=== PATIENT | male | born 1980 | race Caucasian/White ===

== ENCOUNTER 2025-03-06 20:09 | Emergency (ER) | payer OTHER, SELFPAY ==
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
[2025-03-06 20:26] VITALS: BP 141/73; PULSE 94; RESP 16; TEMP 36.7; O2SAT 99
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
--- OUTSIDE RECORDS SUMMARY | 2025-03-06 21:45 | XMS_ITS | Clinical Summary ---
Author Organization [facility] Address [address] [place] [phone] Phone Care Team Providers Care Bale Sewer Name Role Phone Unavailable Primary Care Provider Unavailabl e Social History Tobacco Use Types Packs/Day Years Used Date Smoking Tobacco: Never Assessed Sex and Gender Information Value Date Recorded Sex Assigned at Not on file Legal Sex Male 11:40 PM CDT Gender Identity Not on file Sexual Orientation Not on file Plan of Treatment Health Maintenance Due Date Last Done Comments HPV VACCINES (1 - Male 3-dose series) 1997 DTAP/TDAP/TD VACCINES (1 - Tdap) 2001 HEPATITIS B VACCINES (1 of 3 - 19+ 3-dose series) 04/26 INFLUENZA VACCINE (#1) 2025
--- OUTSIDE RECORDS SUMMARY | 2025-03-06 21:45 | XMS_ITS | Encounter Summary ---
Author Organization [facility] Address [address] [place] [address] Care Team Providers Care Synthetic Plasterer Name Role Phone Unavailable Primary Care Provider Unavailabl e Encounter Details Date Type Department Care Team (Late st Contact Info) Description 11/17/2018 Lab Requisition [facility] [address] [place] [phone] [place] [address] [facility] [address] [place] [address] Social History Tobacco Use Types Packs/Day Years Used Date Smoking Tobacco: Never Assessed Sex and Gender Information Value Date Recorded Sex Assigned at Not on file Legal Sex Male 11:40 PM CDT Gender Identity Not on file Sexual Orientation Not on file documented as of this encounter Plan of Treatment Not on file documented as of this encounter Procedures Procedure Name Priority Date/Time Associated Diagnosis Comments RPR Routine 11/16/2018 1:28 PM CDT documented in this encounter Results * RPR (11/16/2018 1:28 PM CDT) RPR NON-REACTI VE Non-Reacti ve 11/17/2018 8:02 AM CDT [facility] Blood Collection / Unknown 11/16/2018 1:28 PM CDT 11/17/2018 12:13 AM CDT us Luis Parnell MD CHEMISTRY ORDERABLES Final R esult [facility] [employer] [facility] CLIA# [id number] [address] [place] [address] documented in this encounter Visit Diagnoses Not on filedocumented in this encounter
--- OUTSIDE RECORDS SUMMARY | 2025-03-06 21:45 | XMS_ITS | Clinical Summary ---
Author Organization [facility] Address [address] [place] [address] Care Team Providers Care Map Mounter Name Role Phone Hima Diamond MD Unavailable Ingrid Mcknight CALL CENTER TRAINER Primary Care Provider Allergies No known active allergies Medications amitriptyline (ELAVIL) 25 mg tablet Take 1 tablet (25 mg total) by mouth daily 1 Active TURMERIC ORAL Take by mouth Ac tive ibuprofen (ADVIL,MOTRIN) 400 mg tablet Take by mouth every 6 (six) hours as needed for pain Active gabapentin (NEURONTIN) 300 mg capsuleIndicati ons:Neuropathic Pain Take 1 capsule (300 mg total) by mouth every 8 (eight) hours 90 capsule 2 2 Active Additional Information Patient not taking.Reported on 07/18/2024 acetaminophen ER (Tylenol Arthritis Pain) 650 mg 8 hr tablet Take 2 tablets every 8 hours by oral route. 4 Active Active Problems Problem Noted Date Diagnosed Date Neuralgia of right sciatic nerve 07/03/2024 Occult blood in stools 06/26/2024 Hypercholesterolemia 06/06/2024 Prediabetes 06/06/2024 Constipation 06/02/2024 Gastroesophageal reflux disease without esophagi tis 06/02/2024 Hypertriglyceridemia 01/28/2023 Persistent insomnia 01/12/2023 Right facial numbness 02/11/2021 Assessment & Plan (05/08/2021 9:11 AM CDT): Patient has undergone an MRI of the brain demonstrating hyperintensity in the region of the pituitary likely benign. At this time he has no symptoms referable to a pituitary issue. Observation for the neurological standpoint is appropriate. If he would develop new neurological symptoms and a follow-up MRI for surveillance would be recommended. He will follow-up in neurology clinic on as-needed basis. Assessment & Plan (02/11/2021 10:06 AM CDT): Patient describes intermittent right oriana facial numbness without other bulbar deficits either subjectively or objectively on exam. I will obtain an MRI of the brain to exclude structural abnormalities to account for his numbness. I will see him back thereafter. Neck pain 02/11/2021 Assessment & Plan (05/08/2021 9:12 AM CDT): MRI cervical spine demonstrates multilevel spondylosis. Given his failure to respond to chiropractic treatment with regard to back pain I will obtain a physical therapy evaluation as well as refer him for pain management evaluation as well. He will follow-up in neurology clinic on an as-needed basis. Assessment & Plan (02/11/2021 10:07 AM CDT): Patient has a several year history of neck pain with radiating paresthesia into the right arm diffusely. He has been previously seen by a neurologist in both area who told him he had bulging discs. More recently he has undergone a multiyear treatment program by chiropractor without improvement. I will obtain a contemporary MRI cervical spine and see him back thereafter. Chronic bilateral low back pain 02/11/2021 Assessment & Plan (05/08/2021 9:12 AM CDT): MRI lumbar spine demonstrates multilevel noncompressive spondylosis. Given his failure to respond from a lumbar pain standpoint with chiropractic, I will place him through a course of physical therapy and obtain a pain management referral as well. He will follow-up in neurology clinic on an as-needed basis. Assessment & Plan (02/11/2021 10:08 AM CDT): Patient has a several year history of low back pain with radiating paresthesias down both legs diffusely. He has no weakness in the legs no loss of bladder or bowel control. He was previously evaluated [facility] years ago and told to have bulging disc. More recent to treatment by chiropractors been ineffective. I will obtain an MRI lumbar spine to further events to gait is anatomy and see him back thereafter. Surgical History Surgery Date Site/Laterality Comments ORAL SURGERY FL FLUORO GUIDED LUMBAR PUNCTURE 07/28/2024 Right Medical History Medical History Date Comments No pertinent past medical history Neck pain Low back pain Mid back pain Scoliosis Family History Medical History Relation Name Comments No Known Problems Brother Cancer Father No Known Problems Mother Relation Name Status Comments Brother Alive Father Alive Mother Alive Social History Tobacco Use Types Packs/Day Years Used Date Smoking Tobacco: Never Smokeless Tobacco: Never Tobacco Cessation:Counseling Given: Not Answered PHQ-2 Answer Date Recorded PHQ-2 Total Score (If total score is 3 or more points, staff should administer the PHQ-9) 0 01/17/2022 Personal Safety Answer Date Recorded Have you ever been in or are you currently in a harmful physical or emotional relationship or is someone making you feel afraid or unsafe? Denies 07/28/2024 Sex and Gender Information Value Date Recorded Sex Assigned at Not on file Legal Sex Male 1:22 PM DRYWALL HANGER Gender Identity Not on file Sexual Orientation Not on file Obstetrics History Last Filed Vital Signs Vital Sign Reading Time Taken Comments Blood Pressure 121/74 07/28/2024 11:51 AM DRYWALL HANGER Pulse 63 07/28/2024 11:51 AM DRYWALL HANGER Temperature 36.3 C (97.4 F) 01/17/2022 9:22 AM CDT Respiratory Rate 16 07/28/2024 11:51 AM DRYWALL HANGER Oxygen Saturation 98% 07/28/2024 11:51 AM DRYWALL HANGER Inhaled Oxygen Concentration - - Weight 79.4 kg (175 lb) 07/18/2024 9:35 AM DRYWALL HANGER Height 170.2 cm (5' 7) 07/18/2024 9:35 AM DRYWALL HANGER Body Mass Index 27.41 07/18/2024 9:35 AM DRYWALL HANGER Plan of Treatment Health Maintenance Due Date Last Done Comments Hepatitis C Screening 1982 Varicella Vaccines (1 of 2 - 13+ 2-dose series) 1995 Hepatitis B Screening 2000 Regular Well Visit/Exam 18-64 2000 HPV Vaccines (1 - 3-dose SCD M series) 2009 Depression Screening 01/17/2023 01/17/2022 Influenza Vaccine (#1) 2025 DTaP/Tdap/Td Vaccine (2 - Td or Tdap) 11/30/2028 11/30/2018 Pneumococcal vaccine <65 Aged Out No longer eligible based on patient's age to complete this topic Insurance [facility] CHOICE PLUS Member Subscriber Plan / Payer (Ef fective 2023-Present) Name:Brian Castro Relation to Subscriber:Spouse Name:ROXYABELISACC I Date of :1990 (Home) Address: [address] [place] [address] Payer ID:[id number] (NAIC) Type:[facility] HMO/PPO Address: [place] [id number] [facility] [place] [address] [address] [place] [address] [facility] CHOICE PLUS [place] [id number] Care Teams Map Mounter Relationship Specialty Start Date End Date Ingrid Mcknight NP [address] [place] [address] STEVE ALAS [address] [address] PCP - General Family Medicine 07/11/24 Hima Diamond MD [address] [facility], [address] [address] Consulting Physician Pain Management 07/17/21
--- OUTSIDE RECORDS SUMMARY | 2025-03-06 21:45 | XMS_ITS | Encounter Summary ---
Author Organization [facility] Address [address] [place] [address] Care Team Providers Care Clinical Trial Leader Name Role Phone Unavailable Primary Care Provider Unavailabl e Encounter Details Date Type Department Care Team (Late st Contact Info) Description 12/10/2018 Lab Requisition [facility] [place] [address] [place] [phone] [place] [address] [facility] [address] [place] [address] Encounter for general adult medical examination without abnormal findings Social History Tobacco Use Types Packs/Day Years [...] Procedure Name Priority Date/Time Associated Diagnosis Comments GC/CHLAMYDIA, URINE Routine 12/10/2018 1 2:35 PM CDT Encounter for general adult medical examination without abnormal findings documented in this encounter Results * GC/CHLAMYDIA, URINE (12/10/2018 12:35 PM CDT) CHLAMYDIA DNA AMPLIFICATION NOT DETECTED Not Detected 12/11/2018 3:42 AM CDT [facility] GC DNA AMPLIFICATION NOT DETECTED Not Detected 12/11/2018 3:42 AM CDT [facility] [employer] [facility] Urine URINE SPECIMEN / Unknown Collection / Unknown 12/10/2018 12:35 PM CDT 12/10/2018 3:47 PM CDT Narrative [facility] - 12/11/2018 3:42 AM CDT Results should not be used for the evaluation of suspected sexual abuse or for other medico-legal indications. The only legally accepted results are from culture. Results cannot be used to assess therapeutic success or failure since nucleic acids may persist following antimicrobial therapy. Luis Parnell MD URINE ORDERABLES COM Final R esult [id number] [address] [place] [address] documented in this encounter Visit Diagnoses Diagnosis Encounter for general adult medical examination without abnormal findings Routine general medical examination at a health care facility documented in this encounter
[2025-03-06 22:32] VITALS: BP 124/81; PULSE 77; RESP 14; TEMP 36.8; O2SAT 97
== END 2025-03-06 22:26 | disposition home or self-care (01) ==
PROVIDERS: Emergency Provider Student in an Organized Health Care Education/Training Program
DX: S13.4XXA Sprain of ligaments of cervical spine, initial encounter (principal); M19.011 Primary osteoarthritis, right shoulder; V49.40XA Driver injured in collision with unspecified motor vehicles in traffic accident, initial encounter
CPT/HCPCS: 72125; 73030; 99284; L0140